=== PATIENT | female | born 1955 | race Caucasian/White ===

== ENCOUNTER 2018-08-29 10:24 | Day surgery (SDC) | payer OTHER ==
[2018-08-26 15:46] VITALS: BMI 21.0
[2018-08-29] MEDS ORDERED: ROPIVACAINE HCL 0.5% 30ML VIAL ONE (14:41)
[2018-08-29] MEDS ORDERED: MIDAZOLAM HCL 2 MG/2 ML SINGLE DOSE VIAL ONE (14:41)
[2018-08-29] MEDS ORDERED: PROPOFOL 20 ML ONE ×2 (15:13)
[2018-08-29] MEDS ORDERED: ceFAZolin SODIUM 1 GM VIAL ONE ×2 (15:16→16:07)
[2018-08-29] MEDS ORDERED: BENZOIN TINCTURE SWABSTICK TP ONE (15:38)
[2018-08-29] MEDS ORDERED: TRANEXAMIC ACID 1000 MG/10 ML VIAL ONE (16:35)
--- NOTE | 2018-08-29 17:06 | OP ---
Operative Note - Note: Operative Date: 08/29/18 Pre-Operative Diagnosis: Right shoulder impingement syndrome Operation: Right shoulder open: 1. Lily procedure (distal claviculectomy). 2. Neer decompression (acromioplasty & coracoacromial ligament release) Findings: No rotator cuff derangement Post-Operative Diagnosis: Same as Pre-op Surgeon: Calixto Tunrer Voting Machine Repairer: Olaf Turner Anesthesiologist/ELECTRIC LIFT TRUCK DRIVER: Darrell Dominguez Anesthesia: Local (Interscalene block) Specimens Removed: Distal clavicle Estimated Blood Loss (mls): 20 Fluid Volume Replaced (mls): 400 Operative Report Dictated: Yes
[2018-08-29] MEDS ORDERED: ONDANSETRON 4 MG/2 ML VIAL ONE (17:32)
[2018-08-29 18:00] VITALS: TEMP 97.8
[2018-08-29 18:45] VITALS: BP 118/66; PULSE 82
--- NOTE | 2018-09-01 09:56 | OP ---
Date of Operation: 08/29/2018 Surgeon: Calixto Turner MD Broom Maker: Olaf Turner MD Pre-Operative Diagnosis: Impingement syndrome right shoulder. Post-Operative Diagnosis: Impingement syndrome right shoulder. Surgical Procedure: Open right shoulder: 1. Distal claviculectomy (Lily procedure) 2. Acromioplasty & Coracoacromial ligament release (Neer Decompression) Anaesthesia: Inter-scalene block, Sedation. Position: Supine. Incision: Longitudinal. Estimated Blood Loss: 20cc. Intravenous Fluid: 400cc. Specimens: None. Drains: None. Complications: None. Urine output: None. Bacteriology: None. Transfusions: None. Closure: #1 & 2-0 Vicryl. 3-0 Biosyn. Indications: The patient is a 62 female who was indicated for an open right shoulder distal claviculectomy (Lily procedure), coracoacromial ligament release & acromioplasty (Neer Decompression) to ameliorate the symptoms associated with shoulder impingement syndrome. The patient was identified in the holding area by her armband. A long discussion was held with the patient regarding the risks, benefits and alternatives of the above-named procedure. Risks include but are not limited to : pain, bleeding, infection, damage to surrounding structures (including nerves , blood vessels, skin, ligaments, tendons and bone), reflex sympathetic dystrophy (RSD), wound complications, failure of repair, need for further surgery, blood clots, myocardial infarction, pulmonary embolism, anesthesia complications, compartment syndrome, limb loss, limp, loss of function, cerebrovascular event, and . Benefits as mentioned above. Alternatives include no surgery. All questions were answered. The patient understood and agreed to the procedure. Informed consent was obtained, witnessed and verified. The patients correct operative limb - the right upper extremity - was marked, and the anesthesia team administered an ipsilateral interscalene nerve block. The patient was then taken to the operating room after being seen by the anesthesia and nursing staff. Procedure: The patient was brought into the operating room, placed supine on the OR table and secured with a safety strap. Consent and the operative site was again verified with the patient and nursing and anaesthesia staff. Anaesthesia & antibiotics were then administered without complication. A time-out was done led by me, the attending surgeon. The patient was positioned with all bony prominences well padded. A soft bump was placed under the inferior pole of the ipsilateral scapula. The operative limb was prepped in standard sterile fashion using Betadine prep & scrub, wiped off with alcohol, and DuraPrep, and then free draped. A time-out was repeated, and the case began. An incision was made in the lines of Dat from the coracoid process to the lateral tip of the acromion. The deltoid was identified. Subcutaneous dissection was carried with electrocautery down to the level of the distal clavicle. With the distal clavicle exposed, sharp Hohmann retractors were placed around the inferior aspects of the anterior and posterior surfaces of the distal clavicle to elevate it. The acromioclavicular (AC) joint was clearly identified and the AC ligament was incised using a 15-blade. The distal 1cm of the clavicle was marked for excision. An oscillating saw was used to perform a distal clavicular osteotomy. A beveled angular cut was made to avoid leaving a sharp inferior corner to impinge on the rotator cuff below. The excision arthroplasty of the distal clavicle was completed and excised from its capsular attachments using a 15-blade. The soft tissues of the joint were saved for later closure. Throughout the case, hemostasis was assured using either monopolar or bipolar electrocautery. Next, the deltoid was elevated using an [facility] retractor, revealing the coraco-acromial (CA) ligament below. The CA ligament was further identified using peanut swabs. The CA ligament was incised longitudinally using a fresh 15-blade. The CA ligament was then fully released proximally and distally using Metzenbaum scissors. With the CA ligament fully decompressed, the subacromial space became easily accessible. This space was extremely tight. The AC joint capsule was neatly dissected to expose the distal acromion. A blunt Hohmann retractor was placed on the undersurface of the acromion, levering the humeral head down, protecting the underlying structures. Next, the oscillating saw was used to osteotomize the acromion with a beveled cut. A straight 1/2" osteotome was used to complete the cut and to free the excised segment of bone. The osteotomized acromioplasty bone fragment was then removed using a rongeur with a 15-blade to release any soft tissue attachments. The wound was copiously irrigated throughout the case using normal saline solution. Next, with finger palpation, an entire finger was delivered into the sub- acromial space and bursal adhesions were released using manual finger debridement. The shoulder was then taken through a full range of motion and no rotator cuff pathology was identified. At this point the wound was copiously irrigated. The AC joint capsule was closed primarily using #1 vicryl sutures. The released proximal anterior deltoid fibers were approximated to the AC joint capsule using #1 vicryl sutures. Again, copious irrigation was performed, hemostasis was assured and the wound was closed primarily using #1 and 2-0 vicryl sutures. The skin was closed using a 3-0 Biosyn subcuticular suture. A sterile, compressive dressing was applied. The sponge and needle counts were correct at the end of the case and I, the attending surgeon, was present and scrubbed throughout the case. The patient was then transferred to a hospital stretcher and to the recovery room in stable condition, having tolerated the procedure well. A sling was applied at the end of the case. MD RUBIO [id number]/[id number] MTDD
== END 2018-08-29 18:40 | disposition home or self-care (01) ==
LOC: FASU 10:24
PROVIDERS: ATTEND Orthopaedic Surgery Adult Reconstructive Orthopaedic Surgery
PROC: 0MN10ZZ Release Right Shoulder Bursa and Ligament, Open Approach (ICD-10-PCS; 2018-08-29)
PROC: 0PB90ZZ Excision of Right Clavicle, Open Approach (ICD-10-PCS; principal; 2018-08-29 16:11)
DX: M75.41 Impingement syndrome of right shoulder (principal)
CPT/HCPCS: 94760